=== PATIENT | female | born 1985 | race African-American/Black ===

== ENCOUNTER 2021-07-31 09:01 | Outpatient (CLI) | payer OTHER ==
--- NOTE | 2021-07-31 10:59 | MRI Report ---
PROCEDURE: Lumbar Spine W/O INDICATIONS: SCIATICA TECHNIQUE: Noncontrast sagittal T1 spin echo and T2 fast echo, sagittal STIR, axial T1 and T2 fast spin echo thr ough the lumbar spine. In cases with scoliosis, additional coronal T2 fast spin echo may be performe d. COMPARISON: None. FINDINGS: Image quality: Excellent. Alignment and Curvature: There is normal bony alignment. Bone Marrow: Marrow is of normal overall signal. No acute vertebral body compression fractures. Spinal Cord: Conus medullaris terminates at the L1 level. Visualized cord demonstrates normal signa l and size. Paraspinous Soft Tissues: No paravertebral masses. T12-L1: Normal in appearance. L1-L2: Normal in appearance. L2-L3: Normal in appearance. L3-L4: Normal in appearance. L4-L5: No significant abnormality is seen. L5-S1: Normal in appearance. IMPRESSION: Lumbar spine MRI within normal limits, without a cause of the patient's presenting histo ry of sciatica identified. Reviewed by: Sabino Fisher MD on 07/31/2021 9:58 AM SAMMY Approved by: Sabino Fisher MD on 07/31/2021 9:58 AM SAMMY Station ID: [id number]
== END 2021-07-31 09:02 | disposition home or self-care (01) ==
LOC: DI 09:01
PROVIDERS: ATTEND Family Medicine
DX: M54.30 Sciatica, unspecified side (principal)